=== PATIENT | male | born 1960 | race Caucasian/White ===

== ENCOUNTER 2023-11-20 09:02 | Outpatient (RCR) | payer BC, SELFPAY | END 2023-11-20 23:59 | disposition home or self-care (01) | LOC: CRHB 09:02 | PROVIDERS: ATTENDING PHYSICIAN Internal Medicine Interventional Cardiology; FAMILY PHYSICIAN Family Medicine | DX: I25.10 Atherosclerotic heart disease of native coronary artery without angina pectoris (principal); I25.2 Old myocardial infarction | CPT/HCPCS: 93798; G0422 ==

== ENCOUNTER → 2023-12-28 07:19 | Outpatient (REF) | payer BC, SELFPAY ==
[2023-12-28 07:47] LABS: % Basophils 0.2 % (0-2); % Eosinophils 5.4 % (0-6); % Immature Granulocytes 0.2 % (0-0.5); % Lymphocytes 37.6 % (20.5-51.1); % Monocytes 8.5 % (1.7-9.3); % Neutrophils 48.1 % (42.2-75.2); Absolute Eosinophils 0.3 10^3/uL (0-0.7); Absolute Lymphocytes 1.9 10^3/uL (1.2-3.4); Absolute Monocytes 0.4 10^3/uL (0.1-0.6); Absolute Neutrophils 2.4 10^3/uL (1.4-6.5); Hematocrit 45.9 % (39.0-52.0); Hemoglobin 16.6 g/dL (13.0-18.0); Mean Corp Hgb Conc. 36.2 g/dL (33.0-37.0); Mean Corpuscular Hgb 33.5 pg (27.0-31.0); Mean Corpuscular Volume 92.7 fL (80.0-94.0); Mean Platelet Volume 9.2 fL (7.4-10.4); Nucleated Red Blood Cells % 0 % (-); Platelet Count 203 10^3/uL (130-400); Red Blood Cell Count 4.95 10^6/uL (4.70-6.10); Red Cell Dist. Width 12.7 % (11.5-14.5)
[2023-12-28 08:41] LABS: ALT (SGPT) 52 U/L (0-50); AST (SGOT) 92 U/L (17-59); Albumin 4.2 g/dl (3.5-5.0); Alkaline Phosphatase 59 U/L (38-126); Blood Urea Nitrogen 14 mg/dl (9-20); Calcium 9.2 mg/dl (8.4-10.2); Carbon Dioxide 26 mmol/L (22-30); Chloride 107 mmol/L (98-107); Glucose 109 mg/dl (70-99); HDL Cholesterol 37 mg/dl; LDL Cholesterol, Calculated 91 mg/dl; Potassium 5.2 mmol/L (3.5-5.1); Sodium 137 mmol/L (135-145); Total Bilirubin 1.1 mg/dl (0.2-1.3); Total Cholesterol 173 mg/dl (50-199); Total Protein 7.2 g/dl (6.3-8.2); Triglyceride 226 mg/dl (10-149); Very Low Density Lipoprotein 45 mg/dl (0-30); eGFR > 60.00
[2023-12-28 10:11] LABS: Erythrocyte Sed Rate 7 mm/hour (0-20)
[2023-12-28 13:55] LABS: Glycohemoglobin (HgbA1c) 5.4 % (4.0-5.6)
== END ==
LOC: REG 07:19
PROVIDERS: ATTENDING PHYSICIAN Internal Medicine Interventional Cardiology; FAMILY PHYSICIAN Family Medicine
DX: R73.09 Other abnormal glucose (principal)
CPT/HCPCS: 36415; 80053; 80061; 83036; 85025; 85652

== ENCOUNTER → 2024-02-12 06:59 | Outpatient (REF) | payer BC, SELFPAY ==
[2024-02-12 07:33] LABS: % Basophils 0.3 % (0-2); % Immature Granulocytes 0.3 % (0-0.5); % Lymphocytes 37.3 % (20.5-51.1); % Monocytes 6.8 % (1.7-9.3); % Neutrophils 52.3 % (42.2-75.2); Absolute Eosinophils 0.2 10^3/uL (0-0.7); Absolute Lymphocytes 2.2 10^3/uL (1.2-3.4); Absolute Monocytes 0.4 10^3/uL (0.1-0.6); Hematocrit 48.2 % (39.0-52.0); Hemoglobin 17.1 g/dL (13.0-18.0); Mean Corp Hgb Conc. 35.5 g/dL (33.0-37.0); Mean Corpuscular Hgb 32.9 pg (27.0-31.0); Mean Corpuscular Volume 92.7 fL (80.0-94.0); Mean Platelet Volume 9.2 fL (7.4-10.4); Nucleated Red Blood Cells % 0 % (-); Platelet Count 208 10^3/uL (130-400); White Blood Cell Count 5.8 10^3/uL (4.8-10.8)
[2024-02-12 08:05] LABS: Iron 156 ug/dl (49-181)
[2024-02-12 08:15] LABS: D-Dimer 0.28 ug/mlFEU (0.00-0.50)
[2024-02-12 08:22] LABS: Percent Saturation 42 % (20-50); Total Iron Binding Capacity 366 ug/dl (261-462)
== END ==
LOC: REG 06:59
PROVIDERS: ATTENDING PHYSICIAN Internal Medicine Hematology & Oncology; FAMILY PHYSICIAN Family Medicine
DX: I82.401 Acute embolism and thrombosis of unspecified deep veins of right lower extremity (principal)
CPT/HCPCS: 36415; 83540; 83550; 85025; 85379

== ENCOUNTER → 2024-04-19 06:33 | Outpatient (REF) | payer BC, SELFPAY | LOC: MRI 06:33 | PROVIDERS: ATTENDING PHYSICIAN Orthopaedic Surgery Adult Reconstructive Orthopaedic Surgery; FAMILY PHYSICIAN Family Medicine | DX: M17.11 Unilateral primary osteoarthritis, right knee (principal) | CPT/HCPCS: 73721 ==